=== PATIENT | female | born 2000 | race Caucasian/White ===

== ENCOUNTER → 2022-12-03 | Outpatient (CLI) | payer MEDICAID ==
[~2022-12-03] MED LIST: BIRTH CONTROL; MONT10TA21 PO; OMEP20CA6 PO; PANT40TA2 PO; POLY17PO6 PO
--- NOTE | 2022-12-03 11:58 | Diagnostic Imaging Report ---
INDICATION: Right knee pain. FINDINGS: Three views of the right knee were obtained. Alignment is normal. Joint spaces are fairly well maintained. Articular surfaces are smooth. No fracture, dislocation or effusion is identified. IMPRESSION: No acute abnormality is detected. Dictated by: Dictated on workstation # [id number]
== END ==
LOC: ORTHO 09:58
PROVIDERS: ATTEND Orthopaedic Surgery
DX: S83.241A Other tear of medial meniscus, current injury, right knee, initial encounter (principal); X58.XXXA Exposure to other specified factors, initial encounter
CPT/HCPCS: 73562; 99213

== ENCOUNTER → 2022-12-09 | Outpatient (CLI) | payer MEDICAID ==
--- NOTE | 2022-12-09 11:56 | Diagnostic Imaging Report ---
MRI RT LOWER EXT JOINT W/O TECHNIQUE: Multiplanar, multisequence MR imaging of the right knee was performed without contrast. COMPARISON: Right knee MRI of 06/29/2020 INDICATION: Knee pain. Prior meniscal tear. FINDINGS: MENISCI Medial meniscus: Minimal free edge truncation the posterior horn of the medial meniscus could represent partial meniscectomy. There are no features of residual/recurrent tear in the medial meniscus. Lateral meniscus: Normal. LIGAMENTS ACL: Intact. PCL: Intact. MCL: Intact. LCL: The lateral collateral ligamentous complex is intact. EXTENSOR MECHANISM Patellar tendon and quadriceps are intact. Lateral subluxation of patella is noted with abnormal tibial tuberosity-trochlear groove distance of 22 mm. Trochlea is shallow but maintains a concave morphology. CARTILAGE Medial compartment: Medial compartment articular cartilage is well preserved without focal high-grade chondromalacia. Lateral compartment: The lateral compartment articular cartilage is preserved without high-grade chondromalacia. Patellofemoral compartment: Worsening of multifocal partial and full-thickness chondromalacia in the lateral aspect of the trochlea and patella facet. BONE No fracture, stress fracture or osteonecrosis. SOFT TISSUE No knee effusion or Benavidez's cyst. IMPRESSION: 1. No recurrent meniscal tear. 2. Imaging features favor patellofemoral maltracking with lateral subluxation of the patella, lateralization of the tibial tuberosity and a shallow trochlea. 3. 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 Dictated by: Dictated on workstation # [id number]
== END ==
LOC: RAD 08:39
PROVIDERS: ATTEND Orthopaedic Surgery
DX: S83.241A Other tear of medial meniscus, current injury, right knee, initial encounter (principal); M22.41 Chondromalacia patellae, right knee; X58.XXXA Exposure to other specified factors, initial encounter
CPT/HCPCS: 73721